=== PATIENT | female | born 1980 | race Caucasian/White ===

== ENCOUNTER → 2020-12-07 09:56 | Outpatient (CLI) | payer OTHER, MEDICAID, SELFPAY ==
[2020-12-07 10:34] LABS: Hematocrit 38.9 % (36-46); Hemoglobin 13.1 g/dL (12.0-16.0); Mean Corpuscular HGB Conc 33.8 % (30-36); Mean Corpuscular Hemoglobin 28.8 PG (26-34); Mean Corpuscular Volume 85.3 fL (80-100); Platelet Count 208 X10^3/uL (150-400); Red Blood Cell Count 4.56 X10^6/uL (4.0-5.2); Red Cell Distribution Width 14.2 % (11.6-14.8); White Blood Cell Count 6.4 X10^3/uL (4.5-11.0)
[2020-12-07 10:49] LABS: Hemoglobin A1C% w Est Avg Glu 5.4 % (4.0-6.0)
[2020-12-07 11:14] LABS: Alanine Aminotransferase 21 IU/L (<35); Albumin 4.2 g/dL (3.5-5.0); Albumin Globulin Ratio 1.4 (1.0-2.8); Alkaline Phosphatase 68 U/L (38-126); Aspartate Aminotransferase 20 IU/L (14-36); BUN Creatinine Ratio 16.2 (6-22); Bilirubin Total 0.7 mg/dL (0.2-1.3); Blood Urea Nitrogen 11 mg/dL (7-17); Calcium 9.2 mg/dL (8.4-10.2); Carbon Dioxide 24 mmol/L (22-32); Chloride 103 mmol/L (98-107); Cholesterol 156 mg/dL (140-199); Estimated Glomerular Filt Rate > 60.0 mL/min (>60); Globulin 2.9 g/dL (1.7-4.1); Glucose 95 mg/dL (70-100); HDL Cholesterol 52 mg/dL (40-60); HEMOLYSIS < 15 (0-50); LDL Cholesterol Calculated 89 mg/dL (<100); Potassium 4.4 mmol/L (3.4-5.1); Sodium 137 mmol/L (137-145); Total Protein 7.1 g/dL (6.3-8.2); Triglycerides 73 mg/dL (35-150)
[2020-12-07 11:30] LABS: Vitamin D 25 Hydroxy (D3) 24.4 ng/mL (30.0-100.0)
[2020-12-07 11:45] LABS: TSH w/ Reflex to FT4 2.35 uIU/mL (0.47-4.68)
== END ==
PROVIDERS: PCP Registered Nurse Diabetes Educator; Referring Provider Registered Nurse Diabetes Educator; Visit Provider Registered Nurse Diabetes Educator
DX: E28.2 Polycystic ovarian syndrome (principal); F32.9 Major depressive disorder, single episode, unspecified; I10 Essential (primary) hypertension; R53.83 Other fatigue; Z86.32 Personal history of gestational diabetes
CPT/HCPCS: 36415; 80053; 80061; 82306; 83036; 84443; 85027

== ENCOUNTER → 2021-04-27 15:05 | Outpatient (CLI) | payer OTHER, MEDICAID, SELFPAY ==
[2021-04-27 15:58] LABS: BUN Creatinine Ratio 20.8 (6-22); Blood Urea Nitrogen 16 mg/dL (7-17); Calcium 9.3 mg/dL (8.4-10.2); Carbon Dioxide 28 mmol/L (22-32); Chloride 101 mmol/L (98-107); Estimated Glomerular Filt Rate > 60.0 mL/min (>60); Glucose 132 mg/dL (70-100); HEMOLYSIS < 15 (0-50); Potassium 3.8 mmol/L (3.4-5.1); Sodium 138 mmol/L (137-145)
[2021-04-27 16:45] LABS: Vitamin D 25 Hydroxy (D3) 23.8 ng/mL (30.0-100.0)
== END ==
PROVIDERS: PCP Registered Nurse Diabetes Educator; Referring Provider Registered Nurse Diabetes Educator; Visit Provider Registered Nurse Diabetes Educator
DX: I10 Essential (primary) hypertension (principal); E55.9 Vitamin D deficiency, unspecified
CPT/HCPCS: 36415; 80048; 82306

== ENCOUNTER → 2022-01-25 11:46 | Outpatient (CLI) | payer OTHER, MEDICAID, SELFPAY ==
[2022-01-25 13:11] LABS: Hematocrit 40.1 % (36-46); Hemoglobin 13.7 g/dL (12.0-16.0); Mean Corpuscular HGB Conc 34.2 % (30-36); Mean Corpuscular Hemoglobin 29.1 PG (26-34); Mean Corpuscular Volume 84.9 fL (80-100); Platelet Count 212 X10^3/uL (150-400); Red Blood Cell Count 4.72 X10^6/uL (4.0-5.2); Red Cell Distribution Width 14.1 % (11.6-14.8); White Blood Cell Count 7.3 X10^3/uL (4.5-11.0)
[2022-01-25 13:38] LABS: Alanine Aminotransferase 48 IU/L (<35); Albumin 4.6 g/dL (3.5-5.0); Albumin Globulin Ratio 1.4 (1.0-2.8); Alkaline Phosphatase 52 U/L (38-126); Aspartate Aminotransferase 30 IU/L (14-36); BUN Creatinine Ratio 20.5 (6-22); Bilirubin Total 0.6 mg/dL (0.2-1.3); Blood Urea Nitrogen 15 mg/dL (7-17); Calcium 8.8 mg/dL (8.4-10.2); Carbon Dioxide 26 mmol/L (22-32); Chloride 101 mmol/L (98-107); Cholesterol 158 mg/dL (140-199); Estimated Glomerular Filt Rate > 60 mL/min (>60); Globulin 3.3 g/dL (1.7-4.1); Glucose 96 mg/dL (70-100); HDL Cholesterol 46 mg/dL (40-60); HEMOLYSIS < 15 (0-50); LDL Cholesterol Calculated 96 mg/dL (<100); Potassium 3.6 mmol/L (3.4-5.1); Sodium 138 mmol/L (137-145); Total Protein 7.9 g/dL (6.3-8.2); Triglycerides 81 mg/dL (35-150)
[2022-01-25 14:32] LABS: TSH w/ Reflex to FT4 2.67 uIU/mL (0.47-4.68)
[2022-01-25 15:48] LABS: Hemoglobin A1C% w Est Avg Glu 5.2 % (4.0-6.0)
[2022-02-01 18:14] LABS: Vitamin D 25 Hydroxy (D3) 36.6 ng/mL (30.0-100.0)
== END ==
PROVIDERS: PCP Registered Nurse Diabetes Educator; Referring Provider Registered Nurse Diabetes Educator; Visit Provider Registered Nurse Diabetes Educator
DX: E28.2 Polycystic ovarian syndrome (principal); E55.9 Vitamin D deficiency, unspecified; I10 Essential (primary) hypertension; Z86.32 Personal history of gestational diabetes
CPT/HCPCS: 36415; 80053; 80061; 82306; 83036; 84443; 85027

== ENCOUNTER → 2022-08-06 11:17 | Outpatient (CLI) | payer OTHER, MEDICAID, SELFPAY ==
[2022-08-06 12:52] LABS: Alanine Aminotransferase 27 IU/L (<35); Albumin 4.1 g/dL (3.5-5.0); Albumin Globulin Ratio 1.3 (1.0-2.8); Alkaline Phosphatase 48 U/L (38-126); Aspartate Aminotransferase 25 IU/L (14-36); Bilirubin Total 0.6 mg/dL (0.2-1.3); Bilirubin Unconjugated 0.4 mg/dL (0.0-1.1); Globulin 3.2 g/dL (1.7-4.1); HEMOLYSIS < 15 (0-50); Total Protein 7.3 g/dL (6.3-8.2)
== END ==
PROVIDERS: PCP Registered Nurse Diabetes Educator; Referring Provider Registered Nurse Diabetes Educator; Visit Provider Registered Nurse Diabetes Educator
DX: R74.8 Abnormal levels of other serum enzymes (principal)
CPT/HCPCS: 36415; 80076

== ENCOUNTER → 2023-01-08 10:12 | Outpatient (CLI) | payer OTHER, MEDICAID, SELFPAY ==
--- NOTE | 2023-01-08 10:15 | DI.RAD.S_ITS ---
PROCEDURE: XR SHOULDER LT MIN 2V INDICATIONS: eval L shoulder pain and L cervical radiculopathy TECHNIQUE: 3 views of the shoulder were acquired. COMPARISON: None. FINDINGS: Bones: No fractures or dislocations. No suspicious bony lesions. Visualized ribs appear intact. Soft tissues: No suspicious soft tissue calcifications. IMPRESSION: No evidence acute bony abnormality. If clinical suspicion and/or symptoms persist, further assessment with repeat plain films, or advanced imaging (e.g., CT, MRI, or bone scan) may be helpful for further assessment. Dictated by: Hernando Bunn M.D. on 01/08/2023 at 14:35 Approved by: Hernando Bunn M.D. on 01/08/2023 at 14:36
--- NOTE | 2023-01-08 10:15 | DI.RAD.S_ITS ---
PROCEDURE: XR CERVICAL SPINE 4V OR 5V INDICATIONS: eval L shoulder pain and L cervical radiculopathy TECHNIQUE: 5 views of the cervical spine acquired. COMPARISON: None. FINDINGS: Bones: No fractures or dislocations to the T1 level. Oblique images demonstrate mild right bony foraminal narrowing at C4-C5 through C6-C7 and mild left bony foraminal narrowing at C3-C4 and C4-C5. There are anterior osteophytes and disc height loss C5-C6 and C6-C7. Soft tissues: No prevertebral soft tissue swelling. IMPRESSION: Cervical spondylosis with mild multilevel bony foraminal narrowing. Dictated by: Hernando Bunn M.D. on 01/08/2023 at 14:36 Approved by: Hernando Bunn M.D. on 01/08/2023 at 14:37
[2023-01-08 11:57] LABS: BUN Creatinine Ratio 19.5 (6-22); Blood Urea Nitrogen 15 mg/dL (7-17); Carbon Dioxide 31 mmol/L (22-32); Chloride 98 mmol/L (98-107); Estimated Glomerular Filt Rate > 60 mL/min (>60); Glucose 98 mg/dL (70-100); HEMOLYSIS < 15 (0-50); Potassium 3.7 mmol/L (3.4-5.1); Sodium 137 mmol/L (137-145)
[2023-01-08 11:58] LABS: HEMOLYSIS < 15 (0-50); Iron 58 ug/dL (37-170)
[2023-01-08 12:06] LABS: Vitamin D 25 Hydroxy (D3) 22.8 ng/mL (30.0-100.0)
[2023-01-08 12:12] LABS: Free T4, Direct Thyroxine 1.08 ng/dL (0.78-2.19); Percent Iron Saturation 15 % (15-50); Total Iron Binding Capacity 379 ug/dL (265-497); Transferrin 272 mg/dL (206-381)
[2023-01-08 12:24] LABS: Ferritin 29 ng/mL (6-137)
[2023-01-08 12:26] LABS: Thyroid Stimulating Hormone 1.73 uIU/mL (0.47-4.68)
[2023-01-08 12:39] LABS: Vitamin B12 Reflex MMA if <400 242 pg/mL (239-931)
[2023-01-10 00:28] LABS: Thyroid Peroxidase Antibodies <9 IU/mL (0-34)
[2023-01-14 00:45] LABS: Methylmalonic Acid,Serum 150 nmol/L (0-378)
== END ==
PROVIDERS: PCP Registered Nurse Diabetes Educator; Referring Provider Registered Nurse Diabetes Educator; Visit Provider Registered Nurse Diabetes Educator
DX: M47.22 Other spondylosis with radiculopathy, cervical region (principal); M48.02 Spinal stenosis, cervical region; M25.512 Pain in left shoulder; E03.9 Hypothyroidism, unspecified; F32.9 Major depressive disorder, single episode, unspecified; I10 Essential (primary) hypertension; R42 Dizziness and giddiness; R53.83 Other fatigue
CPT/HCPCS: 36415; 72050; 73030; 80048; 82306; 82607; 82728; 83540; 83550; 83921; 84439; 84443; 86376

== ENCOUNTER → 2023-01-14 08:35 | Outpatient (CLI) | payer OTHER, MEDICAID, SELFPAY | PROVIDERS: PCP Registered Nurse Diabetes Educator; Referring Provider Registered Nurse Diabetes Educator; Visit Provider Registered Nurse Diabetes Educator | DX: R42 Dizziness and giddiness (principal) | CPT/HCPCS: 93242 ==

== ENCOUNTER → 2023-02-05 11:20 | Outpatient (CLI) | payer OTHER, MEDICAID, SELFPAY ==
--- NOTE | 2023-02-05 11:21 | DI.RAD.S_ITS ---
PROCEDURE: XR HAND RT MIN 3V INDICATIONS: Right 1st MCP joint s/p trauma TECHNIQUE: 3 views of the hand(s) acquired. COMPARISON: None. FINDINGS: Bones: No fractures or dislocations. Carpal bones are normally aligned. No suspicious bony lesions. Soft tissues: No suspicious soft tissue calcifications. IMPRESSION: Unremarkable right hand radiographs. No fracture Approved by: Mike Henderson M.D. on 02/05/2023 at 16:14
== END ==
PROVIDERS: PCP Registered Nurse Diabetes Educator; Referring Provider Registered Nurse Diabetes Educator; Visit Provider Registered Nurse Diabetes Educator
DX: M25.541 Pain in joints of right hand (principal)
CPT/HCPCS: 73130

== ENCOUNTER → 2023-03-03 14:16 | Outpatient (CLI) | payer OTHER, SELFPAY ==
--- NOTE | 2023-03-03 14:19 | DI.MRI.S_ITS ---
PROCEDURE: MR CERVICAL SPINE WO CON INDICATIONS: C-spine disease, radiculopathy TECHNIQUE: Noncontrast sagittal T1 spin echo and T2 fast spin echo, sagittal STIR, foraminal oblique sagittal T2 fast spin echo, and axial gradient echo or T2 fast spin echo through the cervical spine. COMPARISON: [facility] Outside Film, MR, MR CERVICAL SPINE WITHOUT CONTRAST, 10/15/2018, 6:41. FINDINGS: Image quality: Excellent. Alignment and Curvature: Straightening of the normal cervical lordosis. Bone Marrow: Marrow demonstrates normal overall signal. Spinal Cord: Visualized spinal cord has normal size and signal. No cerebellar tonsillar herniation. Congenital narrowing of the cervical canal. Paraspinous Soft Tissues: No paravertebral masses. Prevertebral soft tissues are normal in thickness. C2-C3: Normal appearance. C3-C4: New posterior disc osteophyte complex abutting the ventral cord. Mild central canal stenosis is new. Facet and uncovertebral arthropathy. No neural foraminal stenosis. C4-C5: Small posterior disc osteophyte complex. Mild central canal stenosis is stable. Facet and uncovertebral arthropathy. Mild right neural foraminal stenosis is stable. No left neural foraminal stenosis. C5-C6: Small posterior disc osteophyte complex. Mild central canal stenosis. Facet and uncovertebral arthropathy. Mild bilateral neural foraminal stenosis is stable. C6-C7: Progression of large right paracentral disc osteophyte complex deforming the cervical cord resulting in severe spinal canal stenosis and severe narrowing of the right lateral recess. Facet and uncovertebral arthropathy. Mild right neural foraminal stenosis. No left neural foraminal stenosis. C7-T1: No central canal or neural foraminal stenosis. IMPRESSION: 1. Multilevel degenerative changes of the cervical spine which have progressed at C3-C4 and C6-C7. 2. Progression of large right paracentral disc osteophyte complex deforming the cervical cord and resulting in severe spinal canal stenosis and right lateral recess stenosis. 3. Progression of disc osteophyte complex at C3-C4 with mild central canal stenosis. Dictated by: Vince Brush M.D. on 03/04/2023 at 9:57 Approved by: Vince Brush M.D. on 03/04/2023 at 10:07
== END ==
LOC: MRI 14:18
PROVIDERS: PCP Registered Nurse Diabetes Educator; Referring Provider Physician Assistant Surgical; Visit Provider Physician Assistant Surgical
DX: M47.22 Other spondylosis with radiculopathy, cervical region (principal); M48.02 Spinal stenosis, cervical region
CPT/HCPCS: 72141

== ENCOUNTER → 2023-11-15 10:16 | Outpatient (CLI) | payer OTHER, SELFPAY ==
[2023-11-15 11:18] LABS: Add Manual Diff / Slide Review NO; Basophils Absolute Auto 0 /uL (0-100); Basophils Percent Auto 0.5 % (0-2); Eosinophils Absolute Auto 200 /uL (0-450); Eosinophils Percent Auto 3.6 % (2-4); Hematocrit 37.5 % (36-46); Hemoglobin 13.3 g/dL (12.0-16.0); Lymphocytes Absolute Auto 1400 /uL (1100-4500); Mean Corpuscular HGB Conc 35.4 % (30-36); Mean Corpuscular Hemoglobin 30.5 PG (26-34); Monocytes Absolute Auto 600 /uL (0-900); Monocytes Percent Auto 9.5 % (3-14); Neutrophils Absolute Auto 4000 /uL (1500-7000); Neutrophils Percent Auto 64.4 % (50-75); Platelet Count 210 X10^3/uL (150-400); Red Blood Cell Count 4.36 X10^6/uL (4.0-5.2); Red Cell Distribution Width 13.5 % (11.6-14.8); White Blood Cell Count 6.2 X10^3/uL (4.5-11.0)
[2023-11-15 11:22] LABS: Hemoglobin A1C% w Est Avg Glu 5.4 % (4.0-6.0)
[2023-11-15 11:35] LABS: Cholesterol 171 mg/dL (140-199); HDL Cholesterol 57 mg/dL (40-60); LDL Cholesterol Calculated 97 mg/dL (<100); Triglycerides 85 mg/dL (35-150)
[2023-11-15 11:53] LABS: HEMOLYSIS < 15 (0-50); Iron 63 ug/dL (37-170)
[2023-11-15 12:04] LABS: Percent Iron Saturation 16 % (15-50); Total Iron Binding Capacity 404 ug/dL (265-497); Transferrin 299 mg/dL (206-381)
[2023-11-15 12:09] LABS: Ferritin 12 ng/mL (6-137)
[2023-11-15 12:11] LABS: Vitamin D 25 Hydroxy (D3) 29.3 ng/mL (30.0-100.0)
[2023-11-15 12:12] LABS: Free T4, Direct Thyroxine 0.79 ng/dL (0.78-2.19)
[2023-11-15 12:26] LABS: Thyroid Stimulating Hormone 2.89 uIU/mL (0.47-4.68)
== END ==
PROVIDERS: PCP Family Medicine; Referring Provider Family Medicine; Visit Provider Family Medicine
DX: E66.01 Morbid (severe) obesity due to excess calories (principal); Z68.41 Body mass index [BMI] 40.0-44.9, adult; R73.03 Prediabetes; I10 Essential (primary) hypertension
CPT/HCPCS: 36415; 80061; 82306; 82728; 83036; 83540; 83550; 84439; 84443; 85025

== ENCOUNTER → 2024-12-21 12:48 | Outpatient (CLI) | payer OTHER, SELFPAY ==
[2024-12-21 15:17] LABS: Hemoglobin A1C% w Est Avg Glu 5.4 % (4.0-6.0)
[2024-12-21 15:30] LABS: Alanine Aminotransferase 27 IU/L (<35); Albumin 4.3 g/dL (3.5-5.0); Albumin Globulin Ratio 1.5 (1.0-2.8); Alkaline Phosphatase 64 U/L (38-126); Blood Urea Nitrogen 12 mg/dL (7-17); Calcium 9.0 mg/dL (8.4-10.2); Carbon Dioxide 27 mmol/L (22-32); Chloride 103 mmol/L (98-107); Estimated Glomerular Filt Rate > 60 mL/min (>60); Globulin 2.9 g/dL (1.7-4.1); Glucose 92 mg/dL (70-99); HEMOLYSIS < 15 (0-50); Potassium 4.2 mmol/L (3.4-5.1); Sodium 137 mmol/L (137-145); Total Protein 7.2 g/dL (6.3-8.2)
[2024-12-21 15:59] LABS: TSH w/ Reflex to FT4 2.32 uIU/mL (0.47-4.68)
== END ==
PROVIDERS: PCP Family Medicine; Referring Provider Family Medicine; Visit Provider Family Medicine
DX: R63.5 Abnormal weight gain (principal); Z13.1 Encounter for screening for diabetes mellitus; I10 Essential (primary) hypertension
CPT/HCPCS: 36415; 80053; 83036; 84443

== ENCOUNTER → 2025-03-25 12:34 | Outpatient (CLI) | payer OTHER, SELFPAY ==
[2025-03-26 15:09] LABS: Interpretation Negative (Negative)
== END ==
PROVIDERS: PCP Family Medicine; Referring Provider Family Medicine; Visit Provider Family Medicine
DX: R14.0 Abdominal distension (gaseous) (principal); R10.9 Unspecified abdominal pain
CPT/HCPCS: 83013